=== PATIENT | female | born 1950 | race Hispanic/Latino ===

== ENCOUNTER → 2017-11-19 | Outpatient (CLI) | payer MEDICARE, OTHER | END | disposition home or self-care (01) | LOC: CT 15:09 | PROVIDERS: ATTEND Orthopaedic Surgery | DX: M17.12 Unilateral primary osteoarthritis, left knee (principal) | CPT/HCPCS: 73700 ==

== ENCOUNTER 2017-12-15 00:42 | Inpatient (IN) | payer MEDICARE, OTHER ==
[2017-12-03 15:04] VITALS: BP 154/80
--- NOTE | 2017-12-03 15:10 | PCM.EKG ---
[facility] Test Date: 2017-12-03 Test Time: 15:09:35 Pat Name: FOREIGN UMANA Department: Patient ID: [facility]-[id number] Room: Gender: F Stablehand: TRE : 1950 Requested By: REBECCA ENGLAND Order Number: [id number] Reading MD: Rose Shirley Measurements Intervals [place] Rate: 62 P: 34 OK: 162 QRS: 40 QRSD: 92 T: 45 QT: 442 QTc: 448 Interpretive Statements Normal sinus rhythm Low voltage QRS Borderline ECG No previous ECG available for comparison Electronically Signed On 12-08-2017 10:37:22 POLYMER SCIENTIST by Rose Shirley Please click the below link to view image of tracing.
[2017-12-03 16:07] LABS: BASOPHIL % 0.6 % (0.0-0.2); EOSINOPHIL # 0.2 10^3/uL (0.0-0.2); EOSINOPHIL % 3.2 % (0.0-5.0); HEMOGLOBIN 12.9 g/dL (12.0-15.0); LYMPHOCYTES # 2.2 10^3/uL (1.0-4.8); LYMPHOCYTES % 32.1 % (24.0-44.0); MEAN CELL HGB 28.5 pg (26-34); MEAN CORP VOLUME 86.5 fL (78-100); MONOCYTES # 0.3 10^3/uL (0.3-0.8); MONOCYTES % 4.1 % (5.0-12.0); NEUTROPHIL # 4.1 10^3/uL (1.8-7.7); NEUTROPHILS % 59.9 % (41.0-85.0); RED CELL DISTRIBUTION WIDTH 13.7 % (11.5-14.5); WHITE BLOOD CELL 6.8 10^3/uL (4.5-11.0)
[2017-12-03 16:25] LABS: CALCIUM 9.1 mg/dL (8.4-10.5); CARBON DIOXIDE 29.2 mmol/L (20.0-32)
[2017-12-15] VITALS (12 sets, daily range): BP systolic 122–163; BP diastolic 61–85
[~2017-12-15] VITALS: Ht 167.6 cm; Wt 138.6 kg
[~2017-12-15 00:42] MED LIST: LEVO25TA4 PO; TURM500C9 PO
[2017-12-15] MEDS ORDERED: ANCEF ONE (05:10)
[2017-12-15] MEDS ORDERED: NS 250ML 250 ML IV ONE ×2 (05:11→07:04)
[2017-12-15] MEDS ORDERED: ANCEF 3 GM in NS 100ML 100 ML IV ONE (06:00)
[2017-12-15] MEDS: LACTATED RINGERS 1,000 ML IV SCH ×3 (06:18→14:12)
[2017-12-15] MEDS ORDERED: TYLENOL PO ONE (06:30)
[2017-12-15] MEDS ORDERED: DECADRON ONE (06:53)
[2017-12-15] MEDS ORDERED: LIDOCAINE 2% VIAL ONE ×2 (06:54→07:42)
[2017-12-15] MEDS ORDERED: VERSED ONE (06:54)
[2017-12-15] MEDS ORDERED: NAROPIN 0.2% 40 MG/20 ML VIAL ONE (06:54)
[2017-12-15] MEDS ORDERED: NAROPIN 0.5% 5 MG/ML VIAL ONE (06:54)
[2017-12-15] MEDS ORDERED: TRANEXAMIC ACID IV ONE (07:04)
[2017-12-15] MEDS ORDERED: NS 100ML 100 ML IV ONE (07:04)
[2017-12-15] MEDS ORDERED: NEURONTIN PO STA (07:06)
[2017-12-15] MEDS ORDERED: CELEBREX PO STA (07:07)
[2017-12-15] MEDS ORDERED: SODIUM CHLORIDE IR ONE (07:09)
[2017-12-15] MEDS ORDERED: ZEMURON IV ONE (07:43)
[2017-12-15] MEDS ORDERED: NEOSTIGMINE ONE (07:43)
[2017-12-15] MEDS ORDERED: DILAUDID ONE (07:43)
[2017-12-15] MEDS ORDERED: ZOFRAN ONE (07:43)
[2017-12-15] MEDS ORDERED: SUBLIMAZE ONE (07:44)
[2017-12-15] MEDS ORDERED: DIPRIVAN IV ONE (07:44)
[2017-12-15] MEDS ORDERED: QUELICIN ONE (07:44)
--- NOTE | 2017-12-15 10:29 | PCM.HP ---
History of Present Illness Reason for Visit: left knee pain History of Present Illness 67yo female complains of left knee pain since 2008, and getting worse. She complains of night pain,a dn pain with household ambulation. She uses a cane to assist with ambulation. She takes Aleve BID without relief. She has had a right total knee arthroplasty in 2008 with good relief. Her xrays do show bone on bone about the medial and patellofemoral compartments with lateral compartment narrowing and osteophytes. Past Medical History Endocrine: Hypothyroidism Past Surgical History: Cholecystectomy (hysterectomy, excision tumor stomach), , Total knee replacement (Right) Past Social History Smoke: No Alcohol: none Travel Hx EBOLA RISK:Travel to/contact w: No Review of Systems Musculoskeletal: leg pain (Left knee pain) Allergies: Coded Allergies: codeine (Verified Allergy, Unknown, Headache, 12/03/17) PT CAN TAKE HYDROCODONE Scheduled Levothyroxine Sodium (Levothyroxine Sodium), 1 TAB PO DAILY, (Reported) Turmeric Root Extract (Turmeric), 500 MG PO DAILY24, (Reported) VTE VTE Risk Total Score: >5 VTE Risk Score VTE Risk: Score 0-1 = Low Risk (Aggressive mobilization; early ambulation; no VTE prophylaxis required) Score 2: Moderate Risk (Intermittent/Pneumatic Compression Device OR Lovenox/Heparin/Coumadin) Score 3-4: High Risk (Intermittent/Pneumatic Compression Device AND Lovenox/Heparin/Coumadin) Score > or =5: Highest Risk (Intermittent/Pneumatic Compression Device AND Lovenox/Heparin/Coumadin) VTE VTE Present on Admission: No Currently receiving anticoagul: No VTE Risk Total Score: >5 Exam Vital Signs Vital Signs Date Time Temp Pulse Resp B/P (MAP) Pulse Ox O2 Delivery O2 Flow Rate FiO2 12/15/17 07:29 69 19 151/81 (104) 97 Nasal Canula 12/15/17 06:02 96.6 General Appearance: Alert, Oriented X3, Cooperative, No acute distress HEENT: Atraumatic Respiratory: Clear to auscultation, Normal air movement Cardiovascular: Regular rate, Normal S1, Normal S2, No murmurs Abdominal: Normal bowel sounds, Soft, No tenderness, No hepatospenomegaly Extremities: No clubbing, No cyanosis, No edema, Normal pulses, Other (Left knee 2+ effusion, full extension, 110 degrees flexion, good medial and lateral stability, moderate crepitation) Skin: No rash, No breakdown, No lesions Neuro: Normal gait, Normal speech, Strength at 5/5 X4 ext, Normal tone, Sensation intact, Cranial nerves 3-12 NL, Reflexes 2+ Psych/Mental Status: Mental status NL, Mood NL Assessment/Plan Assessment/Plan Assessment/Plan A: OA left knee P: Left total knee arthroplasty Problems: (1) Osteoarthritis of left knee Status: Chronic ICD Code: M17.12 - Unilateral primary osteoarthritis, left knee SNOMED: [id number] (2) Hypothyroidism Status: Chronic ICD Code: E03.9 - Hypothyroidism, unspecified SNOMED: [id number] Patient History: Congestive heart failure 32 MOTHER, , Age:85 G8 BROTHER, , Age:77 Diabetes mellitus 32 MOTHER, , Age:85 No known health problems G8 BROTHER G8 BROTHER G8 BROTHER G8 BROTHER G8 SISTER G8 SISTER G8 SISTER 19 CHILD 19 CHILD 19 CHILD No Family History of: Alzheimer's disease Asthma Cerebrovascular disorder Chronic obstructive pulmonary disease Diabetes insipidus Hypertension Parkinson's disease REBECCA ENGLAND PAC Dec 15, 2017 10:29
[2017-12-15] MEDS ORDERED: CEPACOL SORE THROAT LOZENGE MM PRN (10:30)
[2017-12-15] MEDS ORDERED: LACTATED RINGERS 1,000 ML IV SCH (10:30)
[2017-12-15] MEDS ORDERED: PHENERGAN ONE (10:58)
[2017-12-15] MEDS ORDERED: DEMEROL ONE (10:59)
[2017-12-15] MEDS ORDERED: DEMEROL IV PRN (11:00)
[2017-12-15] MEDS ORDERED: SUBLIMAZE IV PRN (11:00)
[2017-12-15] MEDS ORDERED: REGLAN IV PRN (11:00)
[2017-12-15] MEDS ORDERED: DILAUDID IV PRN (11:00)
--- NOTE | 2017-12-15 11:15 | OPH ---
DATE OF SURGERY: 12/15/2017 PREOPERATIVE DIAGNOSIS: Osteoarthritis of the left knee. POSTOPERATIVE DIAGNOSIS: Osteoarthritis of the left knee. OPERATIVE PROCEDURE: Left total knee arthroplasty using Medacta Sphere knee, size 4 femur, a 3+ tibia, a size 2 patella, 10 mm insert. All components were cemented. SURGEON: Aquilino Baxter MD [employer] ASSISTANT: Kaylyn Paiz PA-C ANESTHESIA: General endotracheal. TOURNIQUET TIME: 75 minutes at 300 mmHg. DRAINS: None. BLOOD LOSS: 500 mL. DESCRIPTION OF INDICATIONS: The patient is a 67-year-old female. She has had a several year history of pain about the left knee. She has taken Aleve for the pain as well as tramadol. The patient has to use a cane to ambulate. She is unable to do her grocery shopping or housekeeping. The patient has had home therapy in the past as well as off the shelf bracing. She walked with an obvious limp. Her exam shows a 1+ effusion of the knee. She has full extension and 110 degrees of flexion and good medial and lateral stability. There is moderate crepitation. The x-rays show that she is [id number] medially as well as about the patellofemoral joint. DESCRIPTION OF PROCEDURE: The patient was taken to the operating room today for left total knee arthroplasty for pain relief. This patient was placed on the operating table in the supine position. General endotracheal anesthetic was induced without difficulty. The patient had a well-padded tourniquet placed around the left thigh. The left lower extremity was then sterilely prepped and draped. The patient had the leg exsanguinated with an Esmarch and then the tourniquet was inflated to 300 mmHg. The patient had an anterior incision made about the knee. The incision was taken through the skin and the subcutaneous tissues. Full thickness flaps were developed medially and laterally. A medial parapatellar arthrotomy was performed. The patient then had the medial and lateral meniscectomies performed. The anterior and posterior cruciate ligaments were resected. The patient then had the MyKnee femoral cutting block placed about the distal femur and held into position with multiple pins. The distal femoral cut was then made with the power saw. The #2 jig size 4 was applied to the distal femur and held into position with 2 screws and 2 pins. The anterior and posterior femoral cuts as well as the chamfer cuts were then made. The patient then had the bent knee retractor applied. The tibia was subluxed anteriorly. Medial and lateral meniscectomies were completed. The patient had the MyKnee tibial cutting block applied and held into position with multiple pins. The tibial cut was made. The 10 mm flexion and extension block had a good fit at 90 degrees of flexion as well as full extension. The patient then had the size 3+ tibia placed on the proximal tibia. It was held into position with multiple pins. The central drill hole was made and the cruciate punch was used to stabilize the tibial component. The patient then had a trial reduction done with a 10 mm insert and the size 4 femur and the size 3+ tibia. The knee went out into full extension. She had 120 degrees of passive flexion, excellent medial and lateral stability throughout the range of motion. The patient then had the patella everted. The peripheral osteophytes were trimmed. The patellar cut was made. There were still 14 mm of patella left. The drill holes were made. The size 2 patella had good coverage and then the patella was noted to have good tracking. The trial components were removed. The final medial and lateral femoral drill holes were made. The femoral sulcus cut was made. Once all the trial components were removed and the bone ends were copiously irrigated and the bone ends were dried, then a size 3+ tibia was cemented into position. The 10 mm insert was impacted into position and secured with an anterior screw. The size 4 femur was cemented as was the patella. Once all the excess cement was removed and the cement had hardened, then the patient had the tourniquet released. The bleeding was controlled with the Aquamantys device. The capsule was irrigated with Betadine-containing solution for 3 minutes. The patient then had the capsule closed with a #2 PDS in an interrupted dhjawt-pb-sthel manner. The subcutaneous was closed with a running 2-0 Monocryl. The wound was then closed with amy. A medium size Aquacel was applied and the knee was dressed with a compressive dressing consisting of 4 x 8s, ABD pads and an Mario wrap. The patient was extubated in the operating room, sent to recovery in stable condition. Aquilino Baxter MD DR: CAROLINA/annita JOB# [id number]
--- NOTE | 2017-12-15 11:38 | NUR ---
arrival patient arrived to the floor from or. attached to special vitals and set to q15 minutes. iceman is in place. no s/s of bleeding noted on or around surgical dressing. b/p 128/72, o2 saturation is 96% on room air. hearty rate is 66. left heel floated with ankle donut.
[2017-12-15] MEDS: ULTRAM PO SCH ×3 (12:29→20:00)
[2017-12-15] MEDS: ANCEF 3 GM in NS 1000ML 100 ML IV SCH ×2 (14:00→22:02)
--- NOTE | 2017-12-15 15:03 | DIREP ---
PROCEDURE:XRAY KNEE 1-2 VWS-LT COMPARISON:None. INDICATIONS:post op left total knee arthroplasty FINDINGS: Left knee arthroplasty in satisfactory alignment. Anterior skin amy are noted. Overlying bandage or other dressing artifact is noted. CONCLUSION:Satisfactory appearance of recent left knee arthroplasty. Dictated by: Andreas Nicholas M.D. on 12/15/2017 at 03:01 PM
[2017-12-15] MEDS: ULTRAM PO PRN ×3 (15:17→23:35)
--- NOTE | 2017-12-15 16:48 | PRM.PN ---
Subjective Subjective Date: Dec 15, 2017 Time: 16:47 Subjective Awake and alert Ambulated to end of farrell VSS NVM+ Hgb pending Stable Patient History: Congestive heart failure 32 MOTHER, , Age:85 G8 BROTHER, , Age:77 Diabetes mellitus 32 MOTHER, , Age:85 No known health problems G8 BROTHER G8 BROTHER G8 BROTHER G8 BROTHER G8 SISTER G8 SISTER G8 SISTER 19 CHILD 19 CHILD 19 CHILD No Family History of: Alzheimer's disease Asthma Cerebrovascular disorder Chronic obstructive pulmonary disease Diabetes insipidus Hypertension Parkinson's disease VTE VTE Risk Total Score: >5 VTE Risk Score VTE Risk: Score 0-1 = Low Risk (Aggressive mobilization; early ambulation; no VTE prophylaxis required) Score 2: Moderate Risk (Intermittent/Pneumatic Compression Device OR Lovenox/Heparin/Coumadin) Score 3-4: High Risk (Intermittent/Pneumatic Compression Device AND Lovenox/Heparin/Coumadin) Score > or =5: Highest Risk (Intermittent/Pneumatic Compression Device AND Lovenox/Heparin/Coumadin) Review of Systems Musculoskeletal: leg pain (Left knee pain) Allergies: Coded Allergies: codeine (Verified Allergy, Unknown, Headache, 12/03/17) PT CAN TAKE HYDROCODONE Scheduled Levothyroxine Sodium (Levothyroxine Sodium), 1 TAB PO DAILY, (Reported) Turmeric Root Extract (Turmeric), 500 MG PO DAILY24, (Reported) Objective Vitals and I/O Vital Sign - Last 24 Hours 12/15/17 12/15/17 12/15/17 12/15/17 06:02 06:02 07:10 07:15 Temp 96.6 Pulse 80 69 70 Resp B/P (MAP) 134/76 (95) 134/76 (95) 146/85 (105) Pulse Ox 93 98 97 O2 Delivery Room Air Room Air Nasal Canula Nasal Canula 12/15/17 12/15/17 12/15/17 12/15/17 07:20 07:25 07:29 10:36 Temp 97.9 Pulse 72 68 69 69 Resp B/P (MAP) 153/79 (103) 163/85 (111) 151/81 (104) 144/78 (100) Pulse Ox 97 97 97 15 O2 Delivery Nasal Canula Nasal Canula Nasal Canula Hi Con Mask 12/15/17 12/15/17 12/15/17 12/15/17 10:41 10:51 11:06 11:21 Temp 97.9 97.8 Pulse 71 61 62 73 Resp 18 18 18 18 B/P (MAP) 144/73 (96) 134/72 (92) 135/69 (91) 122/67 (85) Pulse Ox 97 98 95 94 O2 Delivery Hi Con Mask Hi Con Mask Hi Con Mask Nasal [place] 12/15/17 14:18 O2 Delivery Nasal Cannula O2 Flow Rate 2.00 Medication Reconciliation Scheduled Levothyroxine Sodium (Levothyroxine Sodium), 1 TAB PO DAILY, (Reported) Turmeric Root Extract (Turmeric), 500 MG PO DAILY24, (Reported) Course Blood Pressure Systolic: 122 Blood Pressure Diastolic: 67 Blood Pressure Mean: 85 Assessment/Plan Assessment/Plan Patient History: Congestive heart failure 32 MOTHER, , Age:85 G8 BROTHER, , Age:77 Diabetes mellitus 32 MOTHER, , Age:85 No known health problems G8 BROTHER G8 BROTHER G8 BROTHER G8 BROTHER G8 SISTER G8 SISTER G8 SISTER 19 CHILD 19 CHILD 19 CHILD No Family History of: Alzheimer's disease Asthma Cerebrovascular disorder Chronic obstructive pulmonary disease Diabetes insipidus Hypertension Parkinson's disease LISA PRITCHARD MD Dec 15, 2017 16:48
[2017-12-15 18:33] LABS: HEMOGLOBIN 12.5 g/dL (12.0-15.0); MEAN CELL HGB CONCENTRATION 32.3 g/dL (33-37); MEAN CORP VOLUME 86.8 fL (78-100); MEAN PLATELET VOLUME 12.4 fL (7.8-11.0); RED CELL DISTRIBUTION WIDTH 13.6 % (11.5-14.5); WHITE BLOOD CELL 11.6 10^3/uL (4.5-11.0)
[2017-12-15] MEDS: CELEBREX PO SCH (20:14)
[2017-12-16 00:13] VITALS: BP 122/66
[2017-12-16] MEDS: ULTRAM PO SCH ×6 (04:00→20:00)
[2017-12-16 04:38] VITALS: BP 108/62
[2017-12-16] MEDS: ULTRAM PO PRN ×3 (04:55→20:14)
[2017-12-16 05:37] LABS: HEMOGLOBIN 11.3 g/dL (12.0-15.0); MEAN CELL HGB 28.3 pg (26-34); MEAN CELL HGB CONCENTRATION 32.4 g/dL (33-37); MEAN CORP VOLUME 87.3 fL (78-100); MEAN PLATELET VOLUME 12.3 fL (7.8-11.0); RED CELL DISTRIBUTION WIDTH 13.6 % (11.5-14.5); WHITE BLOOD CELL 12.5 10^3/uL (4.5-11.0)
[2017-12-16] MEDS ORDERED: ANCEF ONE (05:59)
[2017-12-16] MEDS ORDERED: ANCEF 2 GM/D5W 50ML 50 ML IV ONE (05:59)
[2017-12-16] MEDS: LACTATED RINGERS 1,000 ML IV SCH ×3 (06:00→15:58)
[2017-12-16] MEDS: SYNTHROID PO SCH (06:03)
[2017-12-16] MEDS: ANCEF 3 GM in NS 1000ML 100 ML IV SCH (06:03)
[2017-12-16] MEDS ORDERED: NS 100ML 100 ML IV ONE (06:06)
[2017-12-16 07:27] VITALS: BP 124/54
--- NOTE | 2017-12-16 07:55 | NUR ---
ambulation PT AMBULATED 100FT WITH WALKER AND STANDBY ASSISTANCE OF JENNIFFER SOSA
--- NOTE | 2017-12-16 08:08 | NUR ---
Post op pain rounds POD #1 after nerve block for knee surgery. Pt is lying in bed. States pain block have been working great. Sensations is returning to her knees but states is not having pain in her knees now. Having some discomfort in the back of her knee which is expected. No complications noted. Pt is very pleased with pain block.
--- NOTE | 2017-12-16 08:26 | PRM.PN ---
Subjective Subjective Date: Dec 16, 2017 Time: 08:25 Subjective Awake and alert Some pain this morning Up in chair Dressing dry and intact Afebrile, VSS H/H Up in farrell with PT and walker yesterday M-N-V intact Patient History: Congestive heart failure 32 MOTHER, , Age:85 G8 BROTHER, , Age:77 Diabetes mellitus 32 MOTHER, , Age:85 No known health problems G8 BROTHER G8 BROTHER G8 BROTHER G8 BROTHER G8 SISTER G8 SISTER G8 SISTER 19 CHILD 19 CHILD 19 CHILD No Family History of: Alzheimer's disease Asthma Cerebrovascular disorder Chronic obstructive pulmonary disease Diabetes insipidus Hypertension Parkinson's disease VTE VTE Risk Total Score: >5 VTE Risk Score VTE Risk: Score 0-1 = Low Risk (Aggressive mobilization; early ambulation; no VTE prophylaxis required) Score 2: Moderate Risk (Intermittent/Pneumatic Compression Device OR Lovenox/Heparin/Coumadin) Score 3-4: High Risk (Intermittent/Pneumatic Compression Device AND Lovenox/Heparin/Coumadin) Score > or =5: Highest Risk (Intermittent/Pneumatic Compression Device AND Lovenox/Heparin/Coumadin) Review of Systems Musculoskeletal: leg pain (Left knee pain) Allergies: Coded Allergies: codeine (Verified Allergy, Unknown, Headache, 12/03/17) PT CAN TAKE HYDROCODONE Scheduled Levothyroxine Sodium (Levothyroxine Sodium), 1 TAB PO DAILY, (Reported) Turmeric Root Extract (Turmeric), 500 MG PO DAILY24, (Reported) Objective Vitals and I/O Vital Sign - Last 24 Hours 12/15/17 12/15/17 12/15/17 12/15/17 10:36 10:41 10:51 11:06 Temp 97.9 97.9 Pulse 69 71 61 62 Resp 18 18 18 18 B/P (MAP) 144/78 (100) 144/73 (96) 134/72 (92) 135/69 (91) Pulse Ox 15 97 98 95 O2 Delivery Hi Con Mask Hi Con Mask Hi Con Mask Hi Con Mask 12/15/17 12/15/17 12/15/17 12/15/17 11:21 14:18 16:52 16:55 Temp 97.8 Pulse 73 76 Resp 18 18 16 B/P (MAP) 122/67 (85) Pulse Ox 94 94 100 O2 Delivery Nasal Canula Nasal Cannula Nasal Cannula O2 Flow Rate 2.00 2.00 FiO2 28 12/15/17 12/15/17 12/16/17 12/16/17 20:09 20:49 00:13 02:58 Temp 97.9 97.7 Pulse 72 60 68 Resp 16 18 20 B/P (MAP) 124/61 (82) 122/66 (84) Pulse Ox 93 94 92 O2 Delivery Room Air Nasal [place] O2 Flow Rate 2.00 12/16/17 12/16/17 04:38 07:27 Temp 98.6 98.6 Pulse 67 71 Resp 20 20 B/P (MAP) 108/62 (77) 124/54 (77) Pulse Ox 92 94 Intake and Output 12/15/17 12/15/17 12/16/17 15:00 23:00 07:00 Intake Total 4950 ml 2500 ml Output Total 130 ml 600 ml 1400 ml Balance 4820 ml 1900 ml -1400 ml Medication Reconciliation Scheduled Levothyroxine Sodium (Levothyroxine Sodium), 1 TAB PO DAILY, (Reported) Turmeric Root Extract (Turmeric), 500 MG PO DAILY24, (Reported) Course Blood Pressure Systolic: 124 Blood Pressure Diastolic: 54 Blood Pressure Mean: 77 Assessment/Plan Assessment/Plan Patient History: Congestive heart failure 32 MOTHER, , Age:85 G8 BROTHER, , Age:77 Diabetes mellitus 32 MOTHER, , Age:85 No known health problems G8 BROTHER G8 BROTHER G8 BROTHER G8 BROTHER G8 SISTER G8 SISTER G8 SISTER 19 CHILD 19 CHILD 19 CHILD No Family History of: Alzheimer's disease Asthma Cerebrovascular disorder Chronic obstructive pulmonary disease Diabetes insipidus Hypertension Parkinson's disease Plan Continue with PT Recheck CBC tomorrow REBECCA ENGLAND PAC Dec 16, 2017 08:26
[2017-12-16] MEDS: COLACE PO SCH (08:37)
[2017-12-16] MEDS: PEPCID PO SCH (08:37)
[2017-12-16] MEDS: XARELTO PO SCH (08:38)
[2017-12-16] MEDS: CELEBREX PO SCH ×2 (08:38→20:14)
[2017-12-16] MEDS: DILAUDID IV PRN ×4 (08:39→21:29)
--- NOTE | 2017-12-16 08:46 | NUR ---
ASSESSMENT SITTING IN BEDSIDE CHAIR, PAIN MED ADMINISTERED. PATIENT DENIES FURTHER NEEDS AT THIS TIME.
--- NOTE | 2017-12-16 10:05 | NUR ---
DISCHARGE PLAN PAULIE VISITED WITH PATIENT AND SISTER CONCERNING PATIENTS DISCHARGE PLAN AND NEED. PATIENT STATED SHE LIVES @ HOME WITH HER IN [place], [place]. SHE STATED SHE HAS ALWAYS BEEN INDEPENDENT ON ADLS, BUT PAIN IN HER LT KNEE HAS RESTRICTED HER. EDUCATION GIVEN TO PATIENT REGARDING POSSIBLE DME NEED AND CONTINUED PHYSICAL THERAPY NEED S/P LT TKA. PATIENT STATED SHE HAS A WALKER WITH WHEELS, SEAT AND BRAKES AND HER BATHROOM IS HANDICAPPED EQUIPPED WITH A WALK IN SHOWER AND HIGH TOILETS WITH HANDRAILS. SHE DID VOICE CONCERN NEEDING A WALKER WITH WHEELS. PATIENT THEN STATED THAT SHE WANTED TO GO OUT PATIENT TO [facility] OUT PATIENT IN [place], [place] DUE TO CONVENIENCE. ORDER OBTAINED FOR WALKER WITH WHEELS AND FAXED TO [facility] WITH ALL PATIENT APPLICABLE CLINICAL INFORMATION. PAULIE THEN NOTIFIED [facility] AND SPOKE TO HORACE REGARDING PATIENTS WALKER NEED. HORACE STATED [facility] WOULD DELIVER PATIENTS WALKER WITH WHEELS LATER THIS EVENING. PAULIE ALSO NOTIFIED [facility] OUT PATIENT IN [place], [place] PER PATIENTS REQUEST. SPOKE TO AGUSTIN WITH PHYSIAL THERAPY DEPARTMENT WHOM STATED THEY NEEDED A ORDER PRIOR TO ARRANGING APPOINTMENT TIME. PAULIE NOTIFIED MED SURG CHARGE NURSE Theodora ROSS RN. PENDING ORDER @ THIS TIME. PAULIE WILL CONTINUE TO FOLLOW. CURRENT GOAL FOR PATIENT IS TO DISCHARGE BACK HOME WITH FAMILY TO ROUTINE SELF CARE AND CONTINUE HER PHYSIAL THERAPY NEEDS OUT PATIENT @ [facility] IN [place], [place] PER PATIENTS REQUEST.
--- NOTE | 2017-12-16 10:06 | NUR ---
cpm PATIENT RESTING IN SUPINE POSITION WITH CPM AT 60 DEGREE AND ICEMAN INTACT. PT DENIES FURTHER NEEDS AND PAIN AT THIS TIME
[2017-12-16 11:57] VITALS: BP 132/69
[2017-12-16 16:03] VITALS: BP 146/78
--- NOTE | 2017-12-16 18:35 | NUR ---
REPORT REPORT GIVEN TO BELLE QUACH
[2017-12-16 20:54] VITALS: BP 134/55
[2017-12-17] MEDS: ULTRAM PO PRN ×3 (00:46→16:32)
[2017-12-17 01:02] VITALS: BP 125/74
[2017-12-17] MEDS: LACTATED RINGERS 1,000 ML IV SCH ×4 (03:00→23:00)
[2017-12-17] MEDS: ULTRAM PO SCH ×6 (04:00→21:38)
[2017-12-17] MEDS ORDERED: ULTRAM ONE (04:16)
[2017-12-17 04:29] VITALS: BP 130/71
[2017-12-17 05:47] LABS: HEMOGLOBIN 10.4 g/dL (12.0-15.0); MEAN CELL HGB 28.3 pg (26-34); MEAN CELL HGB CONCENTRATION 31.9 g/dL (33-37); MEAN CORP VOLUME 88.8 fL (78-100); MEAN PLATELET VOLUME 12.5 fL (7.8-11.0); RED CELL DISTRIBUTION WIDTH 14.2 % (11.5-14.5)
[2017-12-17] MEDS: SYNTHROID PO SCH (05:56)
[2017-12-17 07:41] VITALS: BP 133/64
--- NOTE | 2017-12-17 08:27 | PRM.PN ---
Subjective Subjective Date: Dec 17, 2017 Time: 08:26 Subjective Awake and alert Pain ok M-N-V intact Up in farrell with walker and PT Afebrile, VSS H/H Patient History: Congestive heart failure 32 MOTHER, , Age:85 G8 BROTHER, , Age:77 Diabetes mellitus 32 MOTHER, , Age:85 No known health problems G8 BROTHER G8 BROTHER G8 BROTHER G8 BROTHER G8 SISTER G8 SISTER G8 SISTER 19 CHILD 19 CHILD 19 CHILD No Family History of: Alzheimer's disease Asthma Cerebrovascular disorder Chronic obstructive pulmonary disease Diabetes insipidus Hypertension Parkinson's disease VTE VTE Risk Total Score: >5 VTE Risk Score VTE Risk: Score 0-1 = Low Risk (Aggressive mobilization; early ambulation; no VTE prophylaxis required) Score 2: Moderate Risk (Intermittent/Pneumatic Compression Device OR Lovenox/Heparin/Coumadin) Score 3-4: High Risk (Intermittent/Pneumatic Compression Device AND Lovenox/Heparin/Coumadin) Score > or =5: Highest Risk (Intermittent/Pneumatic Compression Device AND Lovenox/Heparin/Coumadin) Review of Systems Musculoskeletal: leg pain (Left knee pain) Allergies: Coded Allergies: codeine (Verified Allergy, Unknown, Headache, 12/03/17) PT CAN TAKE HYDROCODONE Scheduled Levothyroxine Sodium (Levothyroxine Sodium), 1 TAB PO DAILY, (Reported) Turmeric Root Extract (Turmeric), 500 MG PO DAILY24, (Reported) Objective Vitals and I/O Vital Sign - Last 24 Hours 12/16/17 12/16/17 12/16/17 12/16/17 08:45 09:13 11:57 12:31 Temp 97.2 Pulse 78 71 78 Resp 18 20 16 B/P (MAP) 132/69 (90) Pulse Ox 95 93 97 O2 Delivery Room Air Room Air Room Air Room Air FiO2 21 21 12/16/17 12/16/17 12/16/17 12/16/17 16:03 20:00 20:54 21:13 Temp 97.4 97.1 Pulse 67 67 67 Resp 18 20 20 B/P (MAP) 146/78 (100) 134/55 (81) Pulse Ox 93 96 96 O2 Delivery Room Air Room Air Room Air 12/17/17 12/17/17 12/17/17 01:02 04:29 07:41 Temp 98.3 98.9 98.8 Pulse 79 82 74 Resp 20 20 18 B/P (MAP) 125/74 (91) 130/71 (90) 133/64 (87) Pulse Ox 94 93 92 O2 Delivery Room Air Intake and Output 12/16/17 12/16/17 12/17/17 15:00 23:00 07:00 Intake Total 1100 ml 2040 ml Output Total 1750 ml Balance 1100 ml 2040 ml -1750 ml Medication Reconciliation Scheduled Levothyroxine Sodium (Levothyroxine Sodium), 1 TAB PO DAILY, (Reported) Turmeric Root Extract (Turmeric), 500 MG PO DAILY24, (Reported) Course Blood Pressure Systolic: 133 Blood Pressure Diastolic: 64 Blood Pressure Mean: 87 Assessment/Plan Assessment/Plan Patient History: Congestive heart failure 32 MOTHER, , Age:85 G8 BROTHER, , Age:77 Diabetes mellitus 32 MOTHER, , Age:85 No known health problems G8 BROTHER G8 BROTHER G8 BROTHER G8 BROTHER G8 SISTER G8 SISTER G8 SISTER 19 CHILD 19 CHILD 19 CHILD No Family History of: Alzheimer's disease Asthma Cerebrovascular disorder Chronic obstructive pulmonary disease Diabetes insipidus Hypertension Parkinson's disease Plan Continue with PT today Recheck CBC tomorrow Plan for d/c tomorrow REBECCA ENGLAND PAC Dec 17, 2017 08:27
[2017-12-17] MEDS: CELEBREX PO SCH ×2 (09:50→21:38)
[2017-12-17] MEDS: XARELTO PO SCH (09:50)
[2017-12-17] MEDS: COLACE PO SCH (09:50)
[2017-12-17] MEDS: PEPCID PO SCH (09:51)
[2017-12-17] MEDS: DILAUDID IV PRN ×2 (10:03→18:05)
--- NOTE | 2017-12-17 10:15 | NUR ---
CHANGE IN DISCHARGE PLAN/HH REFERRAL CM MADE A FOLLOW UP VISIT TO PATIENT REGARDING HER DISCHARGE PLAN AND NEED. PATIENT STATED THAT AFTER WORKING MORE WITH PHYSICAL THERAPY DEPARTMENT, SHE DECIDED THAT SHE NEEDED HH VERSES GOING OUT PATIENT FOR CONTINUED PHYSICAL THERAPY NEED. SHE ALSO STATED THAT SHE DECIDED THAT SHE WOULD LIKE A NEW SHOWER CHAIR WITH A BACK. CHOICE LETTER PRESENTED, SIGNED AND PLACED INTO PATIENTS CHART. PAULIE THEN OBTAINED NEW PHYSICIAN ORDER AND FAXED IT WITH ALL PATIENT APPLICABLE CLINICAL INFORMATION TO [facility]. PAULIE NOTIFIED [facility] AND SPOKE TO LISA WHOM STATED HE WOULD DELIVER PATIENTS SHOWER CHAIR WITH BACK TO HOSPITAL ROOM LATER THIS EVENING. PAULIE THEN FAXED PATIENTS CLINICAL INFORMATION TO [facility] PER PATIENTS. PAULIE ALSO NOTIFIED [facility] AND SPOKE TO LETTY GAFFNEY RN WHOM STATED [facility] INTERMEDIATE WITH PHYSICAL THERAPY SERVICES WILL FOLLOW PATIENT UPON DISCHARGE. CM TO CONTINUE TO FOLLOW PATIENTS PLAN OF CARE AND FOR FURTHER DISCHARGE NEEDS.
[2017-12-17 11:41] VITALS: BP 149/72
[2017-12-17 16:26] VITALS: BP 129/64
--- NOTE | 2017-12-17 16:30 | NUR ---
STATUS PT IN BED AT THIS TIME. NO PAIN OR DISCOMFORT NOTED. WILL CONT TO MONITOR
[2017-12-17 20:40] VITALS: BP 119/56
--- NOTE | 2017-12-17 20:46 | CNH ---
DATE OF CONSULTATION: 12/15/2017 CONSULTATION/HISTORY AND PHYSICAL REFERRING PHYSICIAN: Aquilino Baxter MD REASON FOR CONSULTATION: Medical management of multiple medical problems. HISTORY OF PRESENT ILLNESS: The patient is a 67-year-old woman with a past medical history significant for hypothyroidism, who is status post left total knee arthroplasty. Pain is currently well controlled. She denies any nausea, vomiting or chest pain. She is using incentive spirometer and already working with physical therapy well. PAST MEDICAL HISTORY: Includes hypothyroidism. PAST SURGICAL HISTORY: She has had cholecystectomy, hysterectomy, excision of stomach tumor, , right total knee arthroplasty, now status post left total knee arthroplasty. ALLERGIES: ALLERGIC TO CODEINE. HOME MEDICATIONS: List includes levothyroxine 25 mcg daily. SOCIAL HISTORY: She does live at home. Denies any alcohol, tobacco or illicit drug use history. FAMILY HISTORY: Negative for early coronary artery disease or diabetes. REVIEW OF SYSTEMS: CARDIAC: Denies chest pain, shortness of breath or dyspnea on exertion. PULMONARY: No cough, sputum production or pleuritic chest pain. GASTROINTESTINAL: No nausea, vomiting, diarrhea or constipation. All else negative in 10 point review of system except as in HPI. PHYSICAL EXAMINATION: VITAL SIGNS: Upon arrival at that time, the patient was seen, height 167.6 cm, weight 138.3 kg, BMI 49.2, pulse of 76, temperature 97.9, respiratory rate 16, blood pressure 124/61, O2 saturation 94% on 2 liters nasal cannula. GENERAL: She is alert, in no acute distress at time of exam. HEENT: Pupils equal, round, reactive to light. Sclerae are anicteric. Oropharynx is clear. Mucous membranes are moist. NECK: Supple, no lymphadenopathy. CARDIOVASCULAR: At time of exam was regular rate and rhythm. LUNGS: Clear bilaterally. ABDOMEN: Soft. Bowel sounds are present, obese, nontender to palpation. EXTREMITIES: No cyanosis, clubbing or significant edema. NEUROLOGIC: Grossly nonfocal. LABORATORY DATA: CBC: White count 11.6, hemoglobin 12.5 and platelets 195. ASSESSMENT AND PLAN: The patient is a 67-year-old woman having history of hypothyroidism, morbid obesity and status post left total knee arthroplasty. 1. We will continue levothyroxine at current dose. She is clinically euthyroid. 2. Appropriate p.r.n. pain and nausea medication. 3. DVT prophylaxis, she is on factor Xa inhibitor. Time spent on 12/15/2017 is 35 minutes. Thank you very much for this consult. We will follow with you. Alex Nascimento MD DR: KAREN/annita JOB# [id number]
[2017-12-18] MEDS: ULTRAM PO SCH ×3 (00:46→08:00)
[2017-12-18 05:30] LABS: HEMOGLOBIN 10.6 g/dL (12.0-15.0); MEAN CELL HGB 28.3 pg (26-34); MEAN CELL HGB CONCENTRATION 32.1 g/dL (33-37); MEAN PLATELET VOLUME 12.4 fL (7.8-11.0); WHITE BLOOD CELL 8.1 10^3/uL (4.5-11.0)
[2017-12-18] MEDS: LACTATED RINGERS 1,000 ML IV SCH (05:32)
[2017-12-18] MEDS: SYNTHROID PO SCH (05:39)
[2017-12-18 06:36] VITALS: BP 135/72
--- NOTE | 2017-12-18 07:29 | NUR ---
REPORT REPORT RECEIVED AT THIS TIME
[2017-12-18 07:48] VITALS: BP 141/73
[2017-12-18] MEDS: XARELTO PO SCH (08:28)
[2017-12-18] MEDS: PEPCID PO SCH (08:28)
[2017-12-18] MEDS: ULTRAM PO PRN (08:28)
[2017-12-18] MEDS: COLACE PO SCH (08:28)
[2017-12-18] MEDS: CELEBREX PO SCH (08:40)
--- NOTE | 2017-12-18 08:48 | PRM.PN ---
Subjective Subjective Date: Dec 18, 2017 Time: 08:46 Subjective Awake and alert Pain better today Wound benign Up in chair this morning Afebrile, VSS H/H , stable Patient History: Congestive heart failure 32 MOTHER, , Age:85 G8 BROTHER, , Age:77 Diabetes mellitus 32 MOTHER, , Age:85 No known health problems G8 BROTHER G8 BROTHER G8 BROTHER G8 BROTHER G8 SISTER G8 SISTER G8 SISTER 19 CHILD 19 CHILD 19 CHILD No Family History of: Alzheimer's disease Asthma Cerebrovascular disorder Chronic obstructive pulmonary disease Diabetes insipidus Hypertension Parkinson's disease VTE VTE Risk Total Score: >5 VTE Risk Score VTE Risk: Score 0-1 = Low Risk (Aggressive mobilization; early ambulation; no VTE prophylaxis required) Score 2: Moderate Risk (Intermittent/Pneumatic Compression Device OR Lovenox/Heparin/Coumadin) Score 3-4: High Risk (Intermittent/Pneumatic Compression Device AND Lovenox/Heparin/Coumadin) Score > or =5: Highest Risk (Intermittent/Pneumatic Compression Device AND Lovenox/Heparin/Coumadin) Review of Systems Musculoskeletal: leg pain (Left knee pain) Allergies: Coded Allergies: codeine (Verified Allergy, Unknown, Headache, 12/03/17) PT CAN TAKE HYDROCODONE Scheduled Levothyroxine Sodium (Levothyroxine Sodium), 1 TAB PO DAILY, (Reported) Turmeric Root Extract (Turmeric), 500 MG PO DAILY24, (Reported) Objective Vitals and I/O Vital Sign - Last 24 Hours 12/17/17 12/17/17 12/17/17 12/17/17 10:04 10:04 11:41 16:26 Temp 97.4 98.6 Pulse 89 51 91 Resp 16 18 B/P (MAP) 149/72 (97) 129/64 (85) Pulse Ox 91 94 93 O2 Delivery Room Air Room Air Room Air Room Air FiO2 21 12/17/17 12/17/17 12/17/17 12/18/17 17:48 19:45 20:40 06:36 Temp 98.3 98.4 Pulse 83 75 77 Resp 16 18 18 B/P (MAP) 119/56 (77) 135/72 (93) Pulse Ox 92 93 92 O2 Delivery Room Air Room Air Room Air Room Air FiO2 21 12/18/17 12/18/17 07:48 08:43 Temp 99.3 Pulse 78 Resp 18 B/P (MAP) 141/73 (95) Pulse Ox 95 O2 Delivery Room Air Room Air Intake and Output 12/17/17 12/17/17 12/18/17 15:00 23:00 07:00 Intake Total 358 ml 1740 ml Output Total 1200 ml Balance 358 ml 540 ml Medication Reconciliation Scheduled Levothyroxine Sodium (Levothyroxine Sodium), 1 TAB PO DAILY, (Reported) Turmeric Root Extract (Turmeric), 500 MG PO DAILY24, (Reported) Course Blood Pressure Systolic: 141 Blood Pressure Diastolic: 73 Blood Pressure Mean: 95 Assessment/Plan Assessment/Plan Patient History: Congestive heart failure 32 MOTHER, , Age:85 G8 BROTHER, , Age:77 Diabetes mellitus 32 MOTHER, , Age:85 No known health problems G8 BROTHER G8 BROTHER G8 BROTHER G8 BROTHER G8 SISTER G8 SISTER G8 SISTER 19 CHILD 19 CHILD 19 CHILD No Family History of: Alzheimer's disease Asthma Cerebrovascular disorder Chronic obstructive pulmonary disease Diabetes insipidus Hypertension Parkinson's disease Plan Will d/c home today with home health PT Aquacell dressing and LIZBETH hose placed Prescription written for Tramadol, and Xarelto Continue to WBAT on left with walker Follow up in clinic on Friday REBECCA ENGLAND PAC Dec 18, 2017 08:48
[2017-12-18] MEDS ORDERED: TRAM50TA PO (08:50)
[2017-12-18] MEDS ORDERED: RIVA10TA PO (08:50)
[2017-12-18 12:25] VITALS: BP 141/73
--- NOTE | 2017-12-18 13:32 | NUR ---
DISCHARGE PT DISCHARGED AT THIS TIME. PT UNDERSTANDS FOLLOW UP AND NEW MEDICATIONS. PT DENIES [place] OTHER CONCERNS AT THIS TIME. PT DENIES ANY OTHER NEEDS AT THIS TIME. PT LEAVES FLOOR BY WHEELCHAIR TO PRIVATE VEHICLE.
--- NOTE | 2017-12-19 12:12 | DSH ---
DATE OF DISCHARGE: 12/18/2017 ADMITTING DIAGNOSIS: Osteoarthritis about the left knee. OTHER DIAGNOSIS: Include hypothyroidism. DISCHARGE DIAGNOSIS: Osteoarthritis about the left knee. OPERATIVE DATE: 12/15/2017. PROCEDURE PERFORMED: Left total knee arthroplasty. CONSULTATIONS: With Dr. Nascimento. SUMMARY OF ADMISSION: This is a 67-year-old female who has complained of left knee pain for several years, which has just gotten progressively worse. She has failed conservative therapy and she was taken to the operating room on 12/15/2017 for a left total knee arthroplasty. The patient tolerated the procedure very well. Postoperatively, she has been awake and alert. Her vital signs have been stable. She has been on a regular diet and tolerating it well. She has had physical therapy and occupational therapy while in the hospital. Currently, she is independent with transfers as well as with ambulation with her walker. Her pain has been controlled with tramadol. She has also been on Xarelto 10 mg once daily as well as foot pumps and early ambulation for DVT prophylaxis. On 12/18/2017, she continued to do well with physical therapy and occupational therapy. Her wound appeared benign and Aquacel dressing along with LIZBETH hose were placed. She will be discharged on 12/18/2017. She will continue to use her walker and weightbear as tolerated on that left side. She was given a prescription for tramadol as well as for Xarelto and she will have home health physical therapy and she will follow up in the clinic this coming up Friday. DICTATED BY: Kaylyn Paiz, [facility] Aquilino Baxter MD DR: MOHIT/annita JOB# [id number]
== END 2017-12-18 17:00 | disposition home health service (06) | DRG 470 ==
LOC: MS 00:42 → EDBD 08:00
PROVIDERS: ADMIT Orthopaedic Surgery; ATTEND Orthopaedic Surgery
PROC: 0SRD0J9 Replacement of Left Knee Joint with Synthetic Substitute, Cemented, Open Approach (ICD-10-PCS; principal; 2017-12-15 08:18)
DX: M17.12 Unilateral primary osteoarthritis, left knee (principal); E66.01 Morbid (severe) obesity due to excess calories; Z68.42 Body mass index [BMI] 45.0-49.9, adult; M25.762 Osteophyte, left knee; E03.9 Hypothyroidism, unspecified; Z96.651 Presence of right artificial knee joint; Z90.710 Acquired absence of both cervix and uterus; Z90.49 Acquired absence of other specified parts of digestive tract; Z88.5 Allergy status to narcotic agent; Z82.49 Family history of ischemic heart disease and other diseases of the circulatory system; Z83.3 Family history of diabetes mellitus; Z79.899 Other long term (current) drug therapy; Z86.73 Personal history of transient ischemic attack (TIA), and cerebral infarction without residual deficits
CPT/HCPCS: 36415; 64447; 80053; 85025; 85027; 87070; 93005; 97161; 97165; A4338; J0330; J0690; J1100; J1170; J2001; J2175; J2250; J2405; J2550; J2765; J2795; J3010; J3490; J7030; J7050; J7120; 73560-LT; 97110-GP; 97116-GP; 97535-GO; 97760-GP; C1776; G8978-CJ; G8979-CI; G8987; G8988; J2710; J8499